=== PATIENT | male | born 1960 | race Caucasian/White ===

== ENCOUNTER → 2017-06-08 08:10 | Outpatient (CLI) | payer OTHER, SELFPAY ==
--- NOTE | 2017-06-08 08:11 | CDU_ITS ---
Reason For Study: Carotid Stenosis Rt. Velocities/BP Lt. Velocities/BP Prox CCA 91/20 cm/sec. Prox CCA 89/34 cm/sec. Mid CCA 95/26 cm/sec. Mid CCA 106/45 cm/sec. Dist CCA 93/29 cm/sec. Dist CCA 128/43 cm/sec. Prox ICA 266/105 cm/sec. Prox ICA 187/66 cm/sec. Mid ICA 255/83 cm/sec. Dist ICA 100/40 cm/sec. Dist ICA 84/26 cm/sec. Mid ICA 120/53 cm/sec. Rt. ICA/CCA = 2.8. Lt. ICA/CCA = 1.76. Prox ECA 140/25 cm/sec. Prox ECA 389/107 cm/sec. Rt. Vert. 48/15 cm/sec. Lt. Vert. 61/22 cm/sec. Right Extracranial There is homogeneous, smooth atherosclerotic plaque noted in the right common carotid artery. There is homogeneous, irregular atherosclerotic plaque noted in the right internal carotid artery. There is homogeneous, irregular atherosclerotic plaque noted in the right external carotid artery. Antegrade flow is noted in the right vertebral artery. Left Extracranial There is homogeneous, smooth atherosclerotic plaque noted in the left common carotid artery. There is heterogeneous, irregular atherosclerotic plaque noted in the left internal carotid artery. There is homogeneous, irregular atherosclerotic plaque noted in the left external carotid artery. Antegrade flow is noted in the left vertebral artery. Procedure Carotid Duplex [id number]. Exam performed in department. Interpretation Summary Irreglar plague at the proximal right internal carotid with >70% stenosis. Diffuse smooth plague withn the left common carotid with irregular calcific plague within the left carotid bulb. 50-69% stenosis left proximal internal carotid. Normal flow right external carotid with severe stenosis on the left. Patent and antegrade vertebrals bilaterally Ordering Physician: Neri Ramirez Referring Physician: Sree Chauhan Performed By: Mary Aguilar, ASHLEY, RVT
== END ==
PROVIDERS: Family Provider Family Medicine; PCP Family Medicine; Visit Provider Surgery
DX: I65.23 Occlusion and stenosis of bilateral carotid arteries (principal)
CPT/HCPCS: 93880

== ENCOUNTER 2017-06-22 05:22 | Inpatient (IN) | payer OTHER, SELFPAY ==
[2017-06-15 14:05] VITALS: BP 126/76; PULSE 80; RESP 16; TEMP 36.8; O2SAT 97; BMI 25.9
--- NOTE | 2017-06-15 14:26 | SDCEKG_ITS ---
Test Reason : Blood Pressure : / mmHG Vent. Rate : 073 BPM Atrial Rate : 073 BPM P-R Int : 142 ms QRS Dur : 086 ms QT Int : 384 ms P-R-T Axes : 063 044 059 degrees QTc Int : 423 ms Normal sinus rhythm Normal ECG Confirmed by ELMER MADISON, SHEEBA ([id number]), editor news BRAN HAYNES ([id number]) on 06/16/2017 1:20:26 PM Referred By: Neri Ramirez Confirmed By:SHEEBA PAYNE MD
[2017-06-15 14:51] LABS: Hematocrit 38.8 % (40-54); Hemoglobin 13.4 g/dl (13.0-16.5); Mean Corp Hgb Conc 34.5 g/gl (32-36); Mean Corpuscular Hgb 31.6 pg (27.0-32.0); Mean Corpuscular Volume 91.5 fL (80-94); Mean Platelet Vol. 12.2 fl (6.2-12.0); Platelet Count 169 K/mm3 (150-450); RBC Distribution Width CV 12.2 % (11.6-14.6); Red Blood Count 4.24 M/mm3 (4.6-6.2); Scan Indicated on CBC? Y/N NO; White Blood Count 10.3 K/mm3 (4.4-11.0)
[2017-06-15 15:03] LABS: Anion Gap 6 (5-15); BUN 20 mg/dL (7-18); BUN/Creat Ratio 23.5 RATIO (10-20); Calcium,Total 8.6 mg/dL (8.5-10.1); Chloride 106 mmol/L (98-107); Creatinine, Serum 0.85 mg/dL (0.70-1.30); EST Glomerular Filtration Rate 98 mL/min (>60); Est Glom Filt Rate - Afr Amer 119 mL/min (>60); Estimated Creatinine Clearance 103.97 ml/min; Glucose 90 mg/dL (74-106); Sodium Level 137 mmol/L (136-145)
[2017-06-22] VITALS (25 sets, daily range): BP systolic 104–140; BP diastolic 50–76; PULSE 60–79; RESP 16–18; TEMP 36.2–36.9; O2SAT 94–100; BMI 25.9; BMI 25.7
--- NOTE | 2017-06-22 06:35 | OP.PCM_ITS ---
Problem List (1) Carotid stenosis, bilateral Status: Acute Report of Operation Date of Procedure: 06/22/17 Pre-Operative Diagnosis: Severe stenosis right extracranial internal carotid Post-Operative Diagnosis: Same Surgery/Procedure Performed:: Right radial arterial line placement. Right carotid endarterectomy with bovine patch angioplasty Description of Surgical Findings:: Timeout and informed consent was obtained. César test was performed of the right wrist. It was gently extended. It was prepped with Betadine. 1% lidocaine was used as local anesthetic. A 20-gauge aero Angiocath kit was introduced but would not advance. I then instilled more local. Used a 20- gauge Angiocath gain access to the right radial artery slightly more proximally. This was done under ultrasound guidance. I then got clean Seldinger wire advancement. I exchanged out for the area kit Angiocath. That was secured to skin with 3-0 nylon. OpSite and then Maria Eugenia dressing was applied. He tolerated the procedure well without apparent complication. The hand was nicely viable at the completion. He was subsequently taken to the operating room for planned right carotid endarterectomy. The patient was taken to the operating room he was placed on the table. Ancef 2 g given intravenous preoperatively after timeout and informed consent was obtained. The right neck was sterilely prepped and draped. This point was notified that the right a line was malfunctioning. So the procedure was delayed. Left forearm was inspected. It was prepped with Betadine. A 20- gauge Angiocath was advanced into the left radial artery with the C7 to wire technique. OpSite dressing was used to secured to the skin. Maria Eugenia dressing applied. Arm board applied. Good waveform obtained. Right radial arterial line was removed. Now the right neck was sterilely prepped and draped a second time. The oblique incision was made along the anterior border the sternocleidomastoid. Sharp dissection carried down through the substance tissue. The platysma was incised. The sternocleidomastoid was reflected laterally. The crossing facial vein was secured with 3-0 Vicryl ligature. Sharp and blunt dissection used to- 5 the carotid bulb. Dissection performed circumferentially. A Dacron tape Parker tie was placed proximally. This point the patient received 10,000 units of heparin. Circumferential probe was obtained of the external carotid with a vessel loop and of the internal carotid with a Dacron tape and Apple tourniquet. After adequate circling time peripheral vascular clamps were placed on the internal/external and common carotid. 11 blade was used to make an arteriotomy which was extended with Parker scissors. A #10 USCI style shunt was placed cephalad and proximally. The Dacron tapes were used to secured in place. The plaque was noted be very tight right at the proximal portion of the internal carotid. The plaque was very densely adherent to the carotid and the endarterectomy and finding the correct plane was very challenging. Endarterectomy was performed but the posterior wall was rather thin. Having removed all of the debris and the and the focal area of stenosis I then completed the posterior wall together with several interrupted 7-0 Prolene sutures. Suring that that nicely tacked the plaque at the point of intimal feathering at the internal carotid. The vessel was irrigated. I then used a 0.8 cm piece of bovine as a patch graft and performed a patch angioplasty with running 6-0 Prolene. Prior to completion again the vessel was irrigated. The shunt was removed. There is good retrograde flow from the internal carotid external carotid good antegrade flow from the common carotid. The patch angioplasty was completed. The shunt had been removed. A single repair suture of 7-0 Prolene was used for hemostasis. The vessel appeared to be nicely intact. The patient during the enterectomy had received an additional 1000 units of heparin so the total heparin given was 11,000 units. In aliquots now he received a total 30 mg of protamine. Still tissues were rather ozy so I used FloSeal around the vessel to further secure hemostasis. The platysma was then approximated running 3-0 Vicryl. Skin edges proximate running septic or 5- 0 Vicryl. The devante-incisional areas anesthetized with 10 cc of 0.5% Marcaine. Pressure was continued to be held. Steri-Strips Telfa tape dressings applied. He was allowed to awaken on the table and appear to be neurologically intact. He was subsequently taken to recovery or insect condition is no apparent complication. Blood loss was 200 cc. Specimens the plaque. Drains none. He is taken to the recovery room in satisfactory condition. Neri Ramirez M.D., F.A.C.S. Type of Anesthesia:: General Anesthesiologist: Raj Ovalles
--- NOTE | 2017-06-22 06:35 | PCM.DC.GS ---
Discharge Diet: Light diet - advance as tolerated - if you have questions about your diet instructions, please talk to you doctor. Discharge Activity: May Not Drive - for 1 week or while taking narcotic pain medicine. May shower in (days): 4 Lifting Restrictions: 10 pounds Call your doctor if your incision/area has: Continuous Slow Oozing, Sudden Increased Bleeding, Increased Pain/ Swelling, Increased Redness, Foul Smelling Discharge Call your doctor if you observe: Fever of 101 or Higher Suture Line Care: Avoid Pulling/Pushing, Avoid Pinching/Bending Additional Dressing/Incision Instructions:: You may cover the incision with dry gauze and tape in order to protect from clothing. Otherwise you may leave it open. Please remove the Steri-Strips in 1 week Allergies/Adverse Reactions: Allergies No Known Allergies Allergy (Verified 06/15/17 13:59) Medications to take at Discharge Lisinopril [Zestril] 10 mg PO DAILY 07/16/15 atorvastatin 10 mg tablet 40 mg PO QHS tab 05/25/17 varenicline 0.5 mg (11)-1 mg (42) tablets in a dose pack 1 tab PO BID 05/25/17 Aspirin [Aspirin EC] 81 mg PO DAILY 06/15/17 Primary Care Physician: Aroldo Chauhan MD [Primary Care Provider] - Please Follow Up With: Neri Ramirez MD - [phone] When: Call to make an appointment to be seen in about 10 days.
[2017-06-22] MEDS: Cefazolin 2 GM in 0.9% Normal Saline 100 ML IV (07:08)
--- NOTE | 2017-06-22 07:15 | PLAQ_PTH ---
PATIENT: GRICEL LERNER LOC: MS2 U#:[id number] AGE/SX: 56/M ROOM: [id number] RE06/22/[address]: Dr. Neri Ramirez MD : [id number] BED: 1 DIS: 06/23/2017 SPEC #: [id number] RECD: 06/22/17 10:36 STATUS: BLANQUITA SAPNA #: [id number] RAH: 06/22/17 07:[address]: Neri Ramirez DEPT: SURGICAL PATHOLOGY RECD BY: Justus Orona ENTERED: 06/22/17 10:54 SP TYPE: PLAQUE OTHR DR: Dr. Aroldo Chauhan MD Tissues: PLAQUE Procedures: Surgery Specimen Level III HEADER OPERATION: Carotid endarterectomy PRE-OP DIAGNOSIS: Right carotid stenosis TISSUE SUBMITTED: Right carotid plaque MICROSCOPIC DIAGNOSIS Right carotid plaque, endarterectomy: Atherosclerotic tissue with focal calcifications (plaque). SJ:glenys 06/23/17 GROSS DESCRIPTION Received in fixative is one container labeled with the patient's name and designated right carotid plaque. The specimen consists of multiple variable sized pieces of brown-yellow, indurated tissue that in aggregate measure 2 x 0.7 x 0.3 cm. Focally, the specimen cuts with gritty sensation. The entire specimen is submitted in one cassette. / SJ:glenys 06/22/17 TC:5 CPT: 82640
[2017-06-22] MEDS: Bupivacaine Mpf 0.5% 30 ML VIAL (09:51)
--- NOTE | 2017-06-22 14:28 | CASEMGMT ---
CM Assessment: See Link DC Plan: Home.
[2017-06-22] MEDS: HYDROcodone Bitartrate/Apap 5/325 Tablet PO (14:59)
[2017-06-22] MEDS: Cefazolin 1 GM/50 ML BAG IV ×2 (14:59→23:42)
[2017-06-22] MEDS: Aspirin E.C. 81 MG Tablet PO (17:42)
[2017-06-22] MEDS: Varenicline 1 MG Tablet PO ×2 (17:42→21:22)
[2017-06-22] MEDS: Morphine 2 MG/ML Syringe IV ×2 (17:52→23:42)
[2017-06-22] MEDS: Atorvastatin Calcium 40 MG Tablet PO (21:22)
[2017-06-23 05:00] VITALS: BP 153/79; PULSE 86; RESP 16; TEMP 36.6; O2SAT 96
[2017-06-23] MEDS: HYDROcodone Bitartrate/Apap 5/325 Tablet PO (05:17)
--- NOTE | 2017-06-23 05:31 | PCM.PN.SRG ---
Subjective: Pt c/o bilateral frontal FUENTES, no focal motor sensory loss Mild HTN - Physical Exam General: Alert, Oriented x3, Cooperative, No apparent distress HEENT: - - very clean and supple right neck Neurological: Cranial nerves II-XII grossly intact Vital Signs Temp Pulse Resp BP Pulse Ox 98 F 86 16 153/79 H 96 06/23/17 05:00 06/23/17 05:00 06/23/17 05:00 06/23/17 05:00 06/23/17 05:00 Oxygen Delivery Method Room Air Weight: 190 lb 0.615 oz Body Mass Index (BMI) 25.7 Intake and Output for Last 24 Hours 06/21/17 06/22/17 06/23/17 23:59 23:59 23:59 Intake Total 1500 / 1500 350 / 350 Output Total 200 / 200 Balance 1300 / 1300 350 / 350 Medical Necessity - Tobacco Use Smoking Status: Former smoker Assessment/Plan Will treat HTN and FUENTES Anticipate discharge later this morning if FUENTES resolves.
[2017-06-23 05:51] VITALS: PULSE 86
[2017-06-23] MEDS: Ketorolac 30 MG/ML Syringe IV (05:51)
[2017-06-23] MEDS: hydrALAZINE 20 MG/ML Vial 5 MG IV (05:51)
[2017-06-23 06:45] VITALS: BP 107/59; PULSE 72
[2017-06-23 10:13] VITALS: BP 126/60; PULSE 70; RESP 18; TEMP 36.4; O2SAT 98
[2017-06-23] MEDS: Varenicline 1 MG Tablet PO (10:14)
[2017-06-23] MEDS: Lisinopril 10 MG Tablet PO (10:14)
[2017-06-23] MEDS: Aspirin E.C. 81 MG Tablet PO (10:14)
[2017-06-23] MEDS: Ondansetron 4 MG/2 ML Vial IV (12:07)
[2017-06-23] MEDS: 0.9% NaCl Peripheral Flush Adult/Peds IV (12:07)
[2017-06-23 13:20] VITALS: BP 142/74; PULSE 79; RESP 18; TEMP 36.6; O2SAT 98
== END 2017-06-23 13:39 | disposition home or self-care (01) | DRG 39 ==
LOC: ACINP 05:22 → MS3 05:37 → MS2 10:42
PROVIDERS: Admitting Provider Surgery; Family Provider Family Medicine; PCP Family Medicine; Visit Provider Surgery
PROC: 03CK0ZZ Extirpation of Matter from Right Internal Carotid Artery, Open Approach (ICD-10-PCS; CPT 35301; principal; 2017-06-22 06:55)
DX: I65.21 Occlusion and stenosis of right carotid artery (principal); E78.5 Hyperlipidemia, unspecified; I10 Essential (primary) hypertension; Z79.82 Long term (current) use of aspirin; Z79.899 Other long term (current) drug therapy; I73.9 Peripheral vascular disease, unspecified; F17.210 Nicotine dependence, cigarettes, uncomplicated; K21.9 Gastro-esophageal reflux disease without esophagitis; R51 Headache
CPT/HCPCS: 80048; 85027; 88304; 88311; J7040; J7120; A4216; J2405

== ENCOUNTER → 2017-07-16 08:47 | Outpatient (CLI) | payer OTHER, SELFPAY ==
--- NOTE | 2017-07-16 08:49 | CDU_ITS ---
Reason For Study: F/U RT CEA Rt. Velocities/BP Prox CCA 102.0/24.6 cm/sec. Mid CCA 95.6/26.4 cm/sec. Dist CCA 102.0/32.2 cm/sec. Prox ICA 68.6/21.1 cm/sec. Mid ICA 96.7/27.6 cm/sec. Dist ICA 101.0/37.5 cm/sec. Rt. ICA/CCA = 1.1. Prox ECA 190.0/40.9 cm/sec. Rt. Vert. 48.1/13.5 cm/sec. Right Extracranial There is intimal thickening but no significant atherosclerotic plaque noted in the right common carotid artery. There is no significant atherosclerotic plaque noted in the right internal carotid artery. There is homogeneous, smooth atherosclerotic plaque noted in the right external carotid artery. Antegrade flow is noted in the right vertebral artery. Procedure Carotid Duplex [id number]. Exam performed in department. Interpretation Summary Post operative changes of the right carotid bulb and internal carotid with <50% stenosis. Moderate disease right external carotid Patent and antegrade right vertebral Ordering Physician: Neri Ramirez Referring Physician: Neri Ramirez Performed By: Nancy Cordoba RVT
== END ==
PROVIDERS: Family Provider Family Medicine; PCP Family Medicine; Visit Provider Surgery
DX: I65.23 Occlusion and stenosis of bilateral carotid arteries (principal)
CPT/HCPCS: 93880; 93882

== ENCOUNTER → 2018-07-13 | Outpatient (CLI) | payer OTHER, SELFPAY ==
--- NOTE | 2018-07-13 08:44 | CDU_ITS ---
Reason For Study: carotid stenosis Rt. Velocities/BP Lt. Velocities/BP Prox CCA 77.3/26.5 cm/sec. Prox CCA 96.1/39.7 cm/sec. Mid CCA 99.5/31.7 cm/sec. Mid CCA 96.1/40.9 cm/sec. Dist CCA 100.8/36.9 cm/sec. Dist CCA 109.6/43.3 cm/sec. Prox ICA 91.2/39.7 cm/sec. Prox ICA 176/64.3 cm/sec. Mid ICA 112.1/39.7 cm/sec. Mid ICA 74.1/27.4 cm/sec. Dist ICA 104.7/42.1 cm/sec. Dist ICA 94.9/38.4 cm/sec. Rt. ICA/CCA = 1.1. Lt. ICA/CCA = 1.8. Prox ECA 157.6/38.9 cm/sec. Prox ECA 418.1/122.9 cm/sec. Rt. Vert. 63.0/15.1 cm/sec. Lt. Vert. 64.7/21.7 cm/sec. Right Extracranial There is homogeneous, smooth atherosclerotic plaque noted in the right common carotid artery. There is homogeneous, smooth atherosclerotic plaque noted in the right internal carotid artery. There is homogeneous, smooth atherosclerotic plaque noted in the right external carotid artery. Antegrade flow is noted in the right vertebral artery. Left Extracranial There is homogeneous, smooth atherosclerotic plaque noted in the left common carotid artery. There is heterogeneous, irregular atherosclerotic plaque noted in the left internal carotid artery. There is heterogeneous, irregular atherosclerotic plaque noted in the left external carotid artery. Antegrade flow is noted in the left vertebral artery. Procedure Carotid Duplex 12217. The exam was diagnostic. Exam performed in department. Interpretation Summary Post operative changes right carotid bulb and proximal internal carotid with <50% stenosis. <50% stenosis right external carotid Irregular calcific plague at the proximal left internal and external carotid arteries. 50-69% stenosis left internal carotid >50% stenosis left external carotid Patent and antegrade vertebrals bilaterally Notable improvement on the right from a previous exam of 06/08/17 and no change on the left. Ordering Physician: Neri Ramirez Performed By: Tarik Pickett RVT
== END | disposition home or self-care (01) ==
LOC: CVS 08:43
PROVIDERS: Family Provider Family Medicine; PCP Family Medicine; Referring Provider Surgery; Visit Provider Surgery
DX: I65.23 Occlusion and stenosis of bilateral carotid arteries (principal)
CPT/HCPCS: 93880

== ENCOUNTER → 2018-07-26 | Outpatient (CLI) | payer OTHER, SELFPAY ==
[2018-07-19 13:26] VITALS: BMI 29.5
--- NOTE | 2018-07-26 09:49 | ART_ITS ---
Reason For Study: Claudication Procedure A bilateral lower extremity continuous wave Doppler with analog waveform analysis,segmental pressures,and ankle brachial indexes with exercise. Left Segmental Pressures Left brachial= 129mmHg. Left thigh = 129mmHg. Left calf = 92mmHg. Left posterior tibial artery = 106mmHg. Left dorsalis pedis artery = 89mmHg. The left dorsalis pedis waveforms are biphasic. The left posterior tibial artery waveforms are biphasic. Right Segmental Pressures Right brachial= 123mmHg. Right calf = 80mmHg. Right posterior tibial artery = 92mmHg. Right dorsalis pedis artery = 91mmHg. The right dorsalis pedis waveforms are biphasic. The right posterior tibial artery waveforms are biphasic. Indices The right ankle brachial index by the dorsalis pedis is 0.71. The right ankle brachial index by the posterior tibial artery is 0.71. The right post exercise ankle brachial index is 0.34. The left ankle brachial index by the dorsalis pedis is 0.69. The left ankle brachial index by the posterior tibial artery is 0.82. The left post exercise ankle brachial index is 0.44. Interpretation Summary Findings consistent with bilateral lower extremity vascular claudication and bilateral superficial femoral artery occlusions. Bilateral exercise indices diminish significantly and symmetrically correlating with vascular claudication. Ordering Physician: Neri Ramirez Referring Physician: Sree Chauhan Performed By: Becky Humphries RVT
== END | disposition home or self-care (01) ==
LOC: CVS 09:48
PROVIDERS: Family Provider Family Medicine; PCP Family Medicine; Referring Provider Surgery; Visit Provider Surgery
DX: I73.9 Peripheral vascular disease, unspecified (principal)
CPT/HCPCS: 93924

== ENCOUNTER → 2019-09-08 | Outpatient (CLI) | payer OTHER, SELFPAY ==
[2018-07-19 13:26] VITALS: BMI 29.5
--- NOTE | 2019-09-08 12:43 | ART_ITS ---
Reason For Study: claudication Procedure A bilateral lower extremity continuous wave Doppler with analog waveform analysis,segmental pressures,and ankle brachial indexes with exercise. Left Segmental Pressures Left brachial= 153mmHg. Left thigh = 138mmHg. Left calf = 109mmHg. Left posterior tibial artery = 114mmHg. Left dorsalis pedis artery = 111mmHg. The left dorsalis pedis waveforms are biphasic. The left posterior tibial artery waveforms are biphasic. Right Segmental Pressures Right brachial= 148mmHg. Right calf = 129mmHg. Right posterior tibial artery = 107mmHg. Right dorsalis pedis artery = 98mmHg. The right dorsalis pedis waveforms are biphasic. The right posterior tibial artery waveforms are biphasic. Indices The right ankle brachial index by the dorsalis pedis is .64. The right ankle brachial index by the posterior tibial artery is .7. The right ankle brachial index by the posterior tibial artery post exercise is .42. The left ankle brachial index by the dorsalis pedis is .73. The left ankle brachial index by the posterior tibial artery is .75. The left posterior tibial artery index post exercise is .35. Interpretation Summary Moderately severe bilateral lower extremity arterial occlusive disease Exercise indices declined bilaterally with failure of recovery by 9 minutes. Findings more notable regarding the left lower extremity than the right. Findings are in the range of vascular claudication. Findings might suggest slight progression of disease bilaterally from previous examination of July 26, 2018 Ordering Physician: Neri Ramirez Performed By: TAMMY BUSBY RVT
--- NOTE | 2019-09-08 12:43 | CDU_ITS ---
Reason For Study: carotid stenosis Rt. Velocities/BP Lt. Velocities/BP Prox CCA 82.6/18.6 cm/sec. Prox CCA 109.6/34.7 cm/sec. Mid CCA 107.3/33.0 cm/sec. Mid CCA 93.7/33.5 cm/sec. Dist CCA 109.9/30.4 cm/sec. Dist CCA 117.0/40.9 cm/sec. Prox ICA 91.9/27.9 cm/sec. Prox ICA 176.9/60.4 cm/sec. Mid ICA 103.5/37.2 cm/sec. Mid ICA 90.6/29.2 cm/sec. Dist ICA 119.5/37.2 cm/sec. Dist ICA 98.6/38.4 cm/sec. Rt. ICA/CCA = 1.1. Lt. ICA/CCA = 1.9. Prox ECA 143.0/27.9 cm/sec. Prox ECA 425.5/80.9 cm/sec. Rt. Vert. 54.4/12.6 cm/sec. Lt. Vert. 54.4/13.9 cm/sec. Right Extracranial There is homogeneous, smooth atherosclerotic plaque noted in the right common carotid artery. There is homogeneous, smooth atherosclerotic plaque noted in the right internal carotid artery. There is homogeneous, smooth atherosclerotic plaque noted in the right external carotid artery. Antegrade flow is noted in the right vertebral artery. Left Extracranial There is homogeneous, smooth atherosclerotic plaque noted in the left common carotid artery. There is heterogeneous, irregular atherosclerotic plaque noted in the left internal carotid artery. There is heterogeneous, irregular atherosclerotic plaque noted in the left external carotid artery. Antegrade flow is noted in the left vertebral artery. Procedure Carotid Duplex [id number]. The exam was diagnostic. Exam performed in department. Interpretation Summary Post operative changes of the right carotid bulb and proximal internal carotid artery with less than 50% stenosis of the internal carotid artery. <50% stenosis right external carotid Mild irregular calcific plaque left proximal internal carotid artery with 50 to 69% stenosis. >50% stenosis left external carotid Patent, antegrade vertebrals bilaterally No change from the previous examination of July 13, 2018 Ordering Physician: Neri Ramirez Performed By: Tarik Pickett RVT
== END | disposition home or self-care (01) ==
LOC: CVS 12:43
PROVIDERS: PCP Family Medicine; Referring Provider Surgery; Visit Provider Surgery
DX: I65.23 Occlusion and stenosis of bilateral carotid arteries (principal); I73.9 Peripheral vascular disease, unspecified
CPT/HCPCS: 93880; 93924

== ENCOUNTER 2020-06-07 10:52 | Outpatient (RCR) | payer BC, SELFPAY ==
[2019-09-14 07:07] VITALS: BMI 29.5
[2020-06-07] MEDS: COVID-19 VACC, MRNA(PFIZER)/PF 30 MCG/0.3 ML SYRINGE IM (08:34)
[2020-06-28] MEDS: COVID-19 VACC, MRNA(PFIZER)/PF 30 MCG/0.3 ML SYRINGE IM (08:22)
== END 2020-06-07 23:59 ==
LOC: IMMUN 10:52
PROVIDERS: PCP Family Medicine; Visit Provider Family Medicine
DX: Z23 Encounter for immunization (principal)
CPT/HCPCS: 0001A; 0002A; 91300